=== PATIENT | female | born 1945 | race Caucasian/White ===

== ENCOUNTER 2017-02-08 16:55 | Emergency (ER) | payer OTHER ==
[2017-02-08 17:04] VITALS: BP 160/76; BMI 23.0
--- NOTE | 2017-02-08 17:24 | DR.GENAD ---
HPI - PCP Primary Care Physician: Peter - Complaint/Symptoms Chief Complaint:: "I was playing with the kids a few minutes ago and I fell on my shoulder and neck. 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 - Family History History of Family Medical Conditions: Yes Family Medical History: Diabetes Mellitus, Cancer, [place] - Social History Does patient currently use any type of tobacco product: No Have you used tobacco products in the last 12 months: No Type of Tobacco Use: None Does any household member use tobacco: No Alcohol Use: None Do you use any recreational Drugs:: No Lives With: Family Lives Where: Home - infectious screening In the last 2 months have you had wt loss of >10#?: NO Have you had fever, night sweats or hemotysis?: No Have you traveled outside the country in the last 6 months?: No Isolation: Standard ROS - Review of Systems Eyes: No Symptoms Reported ENTM: No Symptoms Reported Respiratoy: No Symptoms Reported Cardiovascular: No Symptoms Reported Gastrointestinal/Abdominal: No Symptoms Reported Genitourinary: No Symptoms Reported Neurological: No Symptoms Reported Musculoskeletal: Neck, Shoulder (right ) Integumentary: No Symptoms Reported Hematologic/Lymphatic: No Symptoms Reported Endocrine: No Symptoms Reported Psychiatric: No Symptoms Reported All Other Systems: Reviewed and Negative PE - Vital Signs Vitals: Temperature 98.2 F Pulse Rate 69 Respiratory Rate 18 Blood Pressure 160/76 O2 Sat by Pulse Oximetry 99 - General General Appearance: Alert, In No Apparent Distress - Head Head Exam: Normal Inspection, Atraumatic - Eyes Eye exam: Normal Appearance, PERRL, EOMI - ENT ENT Exam: Normal Exam External Ear Exam: Normal External Inspection TM/Canal Exam: Bilateral Normal Nose Exam: Normal Nose Exam Mouth Exam: Normal Inspection Throat Exam: Normal Inspection - Neck Neck Exam: Normal Inspection - Chest Chest Inspection: Normal Inspection - Respiratory Respiratory Exam: Normal Lung Sounds Bilat Respiratory Exam: Bilateral Clear to Auscultation - Cardiovascular Cardiovascular Exam: Regular Rate - Abdominal Exam Abdominal Exam: Normal Inspection Abdominal Tenderness: negative: RUQ, RLQ, LUQ, LLQ, Epigastrium, Suprapubic, Diffuse, Mild, Moderate, Severe, Other - Extremities Extremities Exam: Tenderness (right shoulder) - Back Back Exam: Normal Inspection - Neurologic Neurological Exam: Alert, Oriented X3, CN II-XII Intact - Psychiatric Psychiatric Exam: Normal Affect, Normal Mood - Skin Skin Exam: Warm, Dry, Intact ROR - XRAY XRAY Interpreted by: Radiologist (Right shoulder: No acute fracture or dislocation of the right shoulder. Mild DJD of the AC joint. Cervical Spine: No definite acute traumatic abnormality, Degenerative disc disease and bilateral uncovertebral joint degenerative joint disease C5-6;C6-7) - Diagnosis Discharge Problem: DJD of right AC (acromioclavicular) joint Contusion of right shoulder Qualifiers: Encounter type: initial encounter Qualified Code(s): S40.011A - Contusion of right shoulder, initial encounter DJD (degenerative joint disease) of cervical spine Qualifiers: Spinal osteoarthritis complication: with radiculopathy Qualified Code(s): M47.22 - Other spondylosis with radiculopathy, cervical region - Discharge Plan Condition: Stable - Follow ups/Referrals Follow ups/Referrals: CAROLE MEDEIROS [Primary Care Provider] - 3 days - Instructions
[2017-02-08] MEDS ORDERED: TORADOL 30 MG VIAL IM ONE (17:28)
--- NOTE | 2017-02-08 18:00 | RAD ---
HISTORY: Injury, fall, neck pain Study: Cervical spine AP, lateral, oblique Comparison: None Findings: The prevertebral soft tissues are normal. The alignment is normal. The vertebral bodies are of averag e height. Degenerative disc disease is present for a full at C5-6 and C6-7. The odontoid is intact. T he posterior elements appear intact. There is some uncovertebral joint degenerative joint disease vlad aterally C5-6 and C6-7. The facet joints are within normal limits. IMPRESSION: No definite acute traumatic abnormality Degenerative disc disease and bilateral uncovertebral joint degenerative joint disease C5-6, C6-7 Reported By:
[2017-02-08] MEDS ORDERED: TORADOL 30 MG VIAL ONE (18:02)
--- NOTE | 2017-02-08 18:06 | RAD ---
HISTORY: Right shoulder pain after injury. Study: Three-view right shoulder. Comparison: None. Findings: There are mild degenerative changes of the acromioclavicular joint. The AC joint and clavicle are oth erwise grossly unremarkable. The glenohumeral articulation is normal in its appearance. No acute cor tical disruption or dislocation can be identified. The visualized portions of the scapula are unrema rkable. In addition, the visualized portions of the chest appear normal. IMPRESSION: 1. No acute fracture or dislocation of the right shoulder. 2. Mild DJD of the AC joint. Reported By:
== END 2017-02-08 18:31 | disposition home or self-care (01) ==
LOC: ER 17:07
DX: S40.011A Contusion of right shoulder, initial encounter (principal); M19.019 Primary osteoarthritis, unspecified shoulder; M47.22 Other spondylosis with radiculopathy, cervical region; W19.XXXA Unspecified fall, initial encounter; Y92.9 Unspecified place or not applicable
CPT/HCPCS: 72040; 73030; 96372; 99282; J1885

== ENCOUNTER 2019-02-27 15:05 | Observation (INO) ==
[2019-02-27 15:15] VITALS: BMI 22.2
--- NOTE | 2019-02-27 15:28 | DR.DIARMA ---
HPI - Time seen Time seen: 15:19 - PCP Primary Care Physician: NLD - Complaint Chief Complaint Doctor Comments: Patient state she has been having diarrhea all week and has been going to the bathroom every 15 to 20 minutes with bluish green watery stools. States she ate a pineapple sandwick using canned pineapple four nights ago with running off and she thought it was getting better then she had another pineapple sandwick and drank the juice from the can and went to rastafarian and about 30 minutes later she had diarrhea and vomited x1 with her stoold being like water. States she drank a blue Power aide drink and her stool came out blue and later turned greenish blue. She has not been able to keep anything down and cook a big breakfast for a family member today that fixed her bathroom and she tried to eat grits, egg but it would not stay down. She denies merle or hematuria. She is a patient of Dr. Perry in [place]. She denies tobacco, alcohol, drug, or vapor use. States she has had a nonproductive cough but denies fever or chills. Chief Complaint:: PT. STATES SHE ATE A PINEAPPLE SANDWICH ON FRIDAY NIGHT AND DRANK THE JUICE AND AFTER THAT SHE BEGAN HAVING DIARRHEA. PT. IS UNABLE TO EAT OR DRINK ANYTHING WITHOUT HAVING DIARRHEA. PT. ALSO C/O ABDOMINAL PAIN. PT. HAS ONLY VOMITED ONE TIME. PT. C/O WEAKNESS/FATIGUE & A NON PRODUCTIVE COUGH. - Reviewed Nurses notes reviewed: Yes - Source History Provided: Patient - Mode of Arrival Mode of Arrival: Ambulatory - Timing Onset of Chief Complaint: 02/24/19 - Duration Duration: Constant How lon Duration: Days - Severity Number of Diarrhea Episodes in last 24 hours: diffuse abdominal pain - Quality Quality of Diarrhea: Watery - Context Onset: Spontaneous Recent: Possible spoiled food Diarrhea history of: None - Associated signs and symptoms Associated signs and symptoms: Abdominal pain, Nausea, Vomiting - If abdominal pain present Quality: Aching, Generalized Location of Abdominal Pain: Diffuse PMH - PMH Past Medical History: Yes Past Medical History: Dyslipidemia, Hypothyroidism Past Surgical History: Yes 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 - Family History History of Family Medical Conditions: Yes Family Medical History: Diabetes Mellitus, Cancer, [place] - Social History Does patient currently use any type of tobacco product: No Have you used tobacco products in the last 12 months: No Type of Tobacco Use: None Does any household member use tobacco: No Alcohol Use: None Do you use any recreational Drugs:: No Lives With: Alone Lives Where: Home - infectious screening In the last 2 months have you had wt loss of >10#?: NO Have you had fever, night sweats or hemotysis?: No Have you traveled outside the country in the last 6 months?: No Isolation: Standard ROS - Review of Systems Constitutional: No Symptoms Reported, Weakness, Loss of Appetite Eyes: No Symptoms Reported ENTM: No Symptoms Reported Respiratoy: No Symptoms Reported, Non-Productive Cough. negative: See HPI, Productive Cough, Moist Cough, Dry Cough, Hacking Cough, Barking Cough, Brassy Cough, Orthopnea, Short of Breath, Stridor, Wheezing, Hemoptysis, Other Cardiovascular: No Symptoms Reported. negative: See HPI, Chest Pain, Edema, Palpitations, Syncope, Cyanosis, Skin Mottling, Other Gastrointestinal/Abdominal: No Symptoms Reported, Diarrhea, Nausea, Vomiting Genitourinary: No Symptoms Reported Neurological: No Symptoms Reported, Weakness, Dizziness Musculoskeletal: No Symptoms Reported Integumentary: No Symptoms Reported Hematologic/Lymphatic: No Symptoms Reported Endocrine: No Symptoms Reported Psychiatric: No Symptoms Reported PE - General Limitations: No Limitations General Appearance: Alert, In Distress (moderate) - Head Head Exam: Normal Inspection, Atraumatic, Normocephalic - Eyes Eye exam: Normal Appearance, PERRL, EOMI. negative: Scleral Icterus, Conjunctival Injection, Nystagmus, Miosis, Mydrasis, Periorbital Swelling, Periorbital Tenderness, Other - ENT ENT Exam: Normal Exam, Normal Oropharynx, Normal External Ear Exam, Mucous Membranes Moist, TM's Normal Bilaterally - Neck Neck Exam: Normal Inspection, Full ROM, Trachea Midline. negative: Tenderness, Meningismus, Lymphadenopathy, Thyromegaly, Other - Chest Chest Inspection: Normal Inspection, Symmetric Chest Wall Rise. negative: Tenderness, Rash, Abscess, Other - Respiratory Respiratory Exam: Normal Lung Sounds Bilat, Accessory Muscle Use Respiratory Exam: Bilateral Clear to Auscultation, Bilateral Wheezing, Bilateral Dullness on Percussion, Left Rales - Cardiovascular Cardiovascular Exam: Regular Rate, Normal Rhythm, Normal Heart Sounds - Abdominal Exam Abdominal Exam: Normal Inspection, Tenderness, Hyperactive Bowel Sounds Abdominal Tenderness: Diffuse, Mild - Rectal Rectal: Deferred Stool Characteristics: Liquid, Green - Genitourinary Scrotum: Deferred Hernia: Deferred Prostate: negative: Normal, Deferred, Tender, Mass, Enlargement, Other - Extremeties Extremities Exam: Normal Inspection, Full ROM, Normal Capillary Refill. negative: Tenderness, Edema, Joint Swelling, Calf Tenderness, Other - Back Back Exam: Normal Inspection, Full ROM. negative: Tenderness, (R) CVA Tenderness, (L) CVA Tenderness, Muscle Spasm, Paraspinal Tenderness, Vertebral Tenderness, Rashes, (R) Sciatic Notch Tenderness, (L) Sciatic Notch Tendern, (R) Straight Leg Raise, (L) Straight Leg Raise, Other - Neurologic Neurological Exam: Alert, Oriented X3, CN II-XII Intact, Normal Gait, Reflexes Normal - Psychiatric Psychiatric Exam: Normal Affect, Normal Mood - Skin Skin Exam: Warm, Dry, Intact, Normal Color. negative: Rash, Cyanosis, Diaphoresis, Erythema, Pallor, Mottled, Other - Vital Signs Vitals: Temperature 98 F Pulse Rate 100 Respiratory Rate 17 Blood Pressure 137/68 O2 Sat by Pulse Oximetry 95 Course - Reevaluation 1st: Improved - Consultation Called: 17:57 Call Returned: 17:57 (Dr. Ascencio to admit) - Education/Counseling Education/Counseling: Patient, Family Educated On: Treatment, Diagnosis, Needs for Follow Up ROR - Labs Reviewed Laboratory Results Reviewed?: Yes (All labs and x-ray results reviewed and discussed with patient) Result Diagrams: 02/27/19 15:42 02/27/19 15:42 - XRAY XRAY Interpreted by: Radiologist (CT abdomen and pelvis: Diffuse nonspecific enteritisthroughout the small and large bowel. 1mm nonobstructing right renal calculus.) - Labs Reviewed Laboratory: 02/27/19 15:56 Stool - Final WBC 6.1 X10^3/uL (3.6-10.0) 02/27/19 15:42 RBC 4.59 X10^6/uL (3.5-5.4) 02/27/19 15:42 Hgb 13.9 g/dL (12.0-16.0) 02/27/19 15:42 Hct 40.7 % (36.0-47.0) 02/27/19 15:42 MCV 88.7 fL (80.0-100.0) 02/27/19 15:42 MCH 30.4 pg (27.0-34.0) 02/27/19 15:42 MCHC 34.2 g/dL (33.0-35.0) 02/27/19 15:42 RDW 13.0 % (11.6-16.5) 02/27/19 15:42 Plt Count 248 X10^3/uL (150.0-450.0) 02/27/19 15:42 MPV 8.2 fL (7.4-11.0) 02/27/19 15:42 Neut % (Auto) 62.1 % (42.0-75.0) 02/27/19 15:42 Lymph % (Auto) 25.4 % (21.0-51.0) 02/27/19 15:42 [place] % (Auto) 11.1 % (0.0-13.0) 02/27/19 15:42 Eos % (Auto) 0.7 % (0.9-2.9) L 02/27/19 15:42 Baso % (Auto) 0.7 % (0.2-1.0) 02/27/19 15:42 Neut # (Auto) 3.8 x10^3/uL (2.2-4.8) 02/27/19 15:42 Lymph # (Auto) 1.5 X10^3/uL (1.3-2.9) 02/27/19 15:42 [place] # (Auto) 0.7 x10^3/uL (0.3-0.8) 02/27/19 15:42 Eos # (Auto) 0.0 x10^3/uL (0.0-0.2) 02/27/19 15:42 Baso # (Auto) 0.0 X10^3/uL (0.0-0.1) 02/27/19 15:42 Absolute Nucleated RBC 0.0 /100WBC 02/27/19 15:42 Sodium 139 mmol/L (136-145) 02/27/19 15:42 Corrected Sodium 139 mmol/L (136-145) 02/27/19 15:42 Potassium 3.1 mmol/L (3.5-5.1) L 02/27/19 15:42 Chloride 105 mmol/L (98-107) 02/27/19 15:42 Carbon Dioxide 17.1 mmol/L (21-32) L 02/27/19 15:42 BUN 10 mg/dL (7-18) 02/27/19 15:42 Creatinine 0.72 mg/dL (0.55-1.02) 02/27/19 15:42 Est GFR (MDRD) Af Amer > 60 (>60) 02/27/19 15:42 Est GFR (MDRD) Non-Af > 60 (>60) 02/27/19 15:42 Glucose 112 mg/dL (65-99) H 02/27/19 15:42 Calcium 8.9 mg/dL (8.5-10.1) 02/27/19 15:42 Corrected Calcium TNP 02/27/19 15:42 Total Bilirubin 0.30 mg/dL (0.2-1.0) 02/27/19 15:42 AST 20 Units/L (15-37) 02/27/19 15:42 ALT 19 Units/L (12-78) 02/27/19 15:42 Alkaline Phosphatase 68 Units/L (46-116) 02/27/19 15:42 Total Protein 7.5 g/dL (6.4-8.2) 02/27/19 15:42 Albumin 3.6 g/dL (3.4-5.0) 02/27/19 15:42 Globulin 3.9 g/dL (2.5-4.5) 02/27/19 15:42 Albumin/Globulin Ratio 0.9 Ratio (1.1-2.1) L 02/27/19 15:42 Amylase 23 Units/L (25-115) L 02/27/19 15:42 Lipase 85 Units/L (73-393) 02/27/19 15:42 Stool Description 62g,liquid,green 02/27/19 15:59 Stl Occult Blood (IFOB) Negative (NEGATIVE) 02/27/19 15:59 Stool for White Cells Positive (NEGATIVE) A 02/27/19 15:59 Stool H. pylori Ag Negative (NEGATIVE) 02/27/19 15:59 Opioid - Opioid Risk Tool Total: 0 Total Score Risk Category: Low Risk - Diagnosis Discharge Problem: Acute infective gastroenteritis, Metabolic acidosis, Hypokalemia, Hyperglycemia, Right renal stone, Weight loss, unintentional - Discharge Plan Disposition: ADMITTED INPATIENT Condition: Stable - Follow ups/Referrals Follow ups/Referrals: NFD,None [STAFF PHYSICIAN] - 3 days - Instructions
[2019-02-27] MEDS ORDERED: NS 1000 ML 1,000 ML IV ONE (15:29)
[2019-02-27] MEDS ORDERED: NS 1000 ML 1,000 ML ONE (15:36)
[2019-02-27 15:49] LABS: BASOPHILS % (AUTO) 0.7 % (0.2-1.0); EOSINOPHILS % (AUTO) 0.7 % (0.9-2.9); HEMATOCRIT 40.7 % (36.0-47.0); HEMOGLOBIN 13.9 g/dL (12.0-16.0); LYMPHOCYTES # (AUTO) 1.5 X10^3/uL (1.3-2.9); LYMPHOCYTES % (AUTO) 25.4 % (21.0-51.0); MEAN CORPUSCULAR HEMOGLOBIN 30.4 pg (27.0-34.0); MEAN CORPUSCULAR HGB CONC 34.2 g/dL (33.0-35.0); MEAN CORPUSCULAR VOLUME 88.7 fL (80.0-100.0); MEAN PLATELET VOLUME 8.2 fL (7.4-11.0); MONOCYTES # (AUTO) 0.7 x10^3/uL (0.3-0.8); MONOCYTES % (AUTO) 11.1 % (0.0-13.0); NEUTROPHILS # (AUTO) 3.8 x10^3/uL (2.2-4.8); NEUTROPHILS % (AUTO) 62.1 % (42.0-75.0); PLATELET COUNT 248 X10^3/uL (150.0-450.0); RED BLOOD COUNT 4.59 X10^6/uL (3.5-5.4); WHITE BLOOD COUNT 6.1 X10^3/uL (3.6-10.0)
[2019-02-27 16:01] LABS: ALANINE AMINOTRANSFERASE 19 Units/L (12-78); ALBUMIN 3.6 g/dL (3.4-5.0); ALKALINE PHOSPHATASE 68 Units/L (46-116); AMYLASE 23 Units/L (25-115); ASPARTATE AMINO TRANSFERASE 20 Units/L (15-37); BLOOD UREA NITROGEN 10 mg/dL (7-18); CALCIUM 8.9 mg/dL (8.5-10.1); CARBON DIOXIDE 17.1 mmol/L (21-32); CHLORIDE 105 mmol/L (98-107); COR NA(FOR HYPERGLY) 139 mmol/L (136-145); CREATININE 0.72 mg/dL (0.55-1.02); LIPASE 85 Units/L (73-393); SODIUM 139 mmol/L (136-145); TOTAL PROTEIN 7.5 g/dL (6.4-8.2); eGFR NON BLACK RACES > 60 (>60)
--- NOTE | 2019-02-27 16:28 | CT ---
HISTORY: Abdominal pain, persistent diarrhea Study: CT abdomen and pelvis without contrast Comparison: None Technique: Multiple axial images of the abdomen and pelvis were obtained without IV contrast. Dose reduction techniques including Automated Exposure Control (AEC) and adjustment of mA and kV were utilized. Findings: Please note evaluation is limited without use of IV contrast. The visualized lung bases are clear. The liver, spleen, pancreas, and adrenal glands are unremarkable in their unenhanced CT appearance. The gallbladder is normal. There is a single 1 mm nonobstructing right renal calculus. The bilateral ureters are normal. No free intraperitoneal air. No evidence of bowel obstruction. The visualized portions of the appendix are normal. No ascites. There are scattered fluid-filled loops of small and large bowel with air-fluid levels suggesting diffuse nonspecific enteritis. The soft tissues and osseous structures are unremarkable. Limited evaluation of vascular structures due to lack of contrast. No pathologically enlarged lymph nodes are identified. Urinary bladder is not well distended but otherwise unremarkable. IMPRESSION: 1. Diffuse nonspecific enteritis pattern throughout the small and large bowel. 2. 1 mm nonobstructing right renal calculus. Reported By:
[2019-02-27] MEDS ORDERED: ZOFRAN INJ 4 MG VIAL IVP ONE (16:33)
[2019-02-27] MEDS ORDERED: LOMOTIL PO ONE (16:34)
[2019-02-27] MEDS ORDERED: ROCEPHIN VIAL 1 GRAM 1 G in NS 100 ML IV + SPIKE MINIBAG* 100 ML IV ONE (16:34)
[2019-02-27] MEDS ORDERED: ZOFRAN INJ 4 MG VIAL ONE (16:53)
[2019-02-27] MEDS ORDERED: LOMOTIL ONE (16:58)
[2019-02-27] MEDS: K-LYTE EFFERVESCENT PO SCH (17:05)
[2019-02-27] MEDS ORDERED: ROCEPHIN VIAL 1 GRAM ONE (17:06)
[2019-02-27] MEDS ORDERED: IMODIUM CAP 2 MG PO PRN (18:01)
[2019-02-27] MEDS ORDERED: ZOFRAN INJ 4 MG VIAL IVP PRN (18:04)
[2019-02-27 19:14] LABS: BILIRUBIN,URINE NEGATIVE (NEGATIVE); BLOOD/HEMOGLOBIN,URINE 2+ (NEGATIVE); GLUCOSE, URINE NEGATIVE (NEGATIVE); KETONES,URINE 2+ (NEGATIVE); LEUKOCYTE ESTERASE ,URINE NEGATIVE (NEGATIVE); NITRITES,URINE NEGATIVE (NEGATIVE); PROTEIN,URINE 2+ (NEGATIVE); UROBILINOGEN,URINE NORMAL (NORMAL)
[2019-02-27 19:22] LABS: APPEARANCE,URINE SLIGHTLY HAZY (CLEAR); COLOR,URINE YELLOW (YELLOW)
[2019-02-27 19:23] LABS: BACTERIA,URINE NEGATIVE /HPF (NEGATIVE); MUCUS,URINE MODERATE /HPF (NEGATIVE); RBC,URINE 0-2 /HPF (0-3); SQUAMOUS EPITHELIAL CELL,UR RARE /HPF (NEGATIVE)
[2019-02-27] MEDS: NS 1/2 + KCL 20 MEQ/L 1,000 ML IV SCH (19:45)
[2019-02-27] MEDS ORDERED: POTASSIUM CHL 60 MEQ/NS 0.45% 500 ML IV PRN (21:32)
[2019-02-27] MEDS ORDERED: K-RIDER 10 MEQ/NS 100 ML 10 MEQ/100 ML BAG IV PRN (21:32)
[2019-02-27] MEDS ORDERED: POTASSIUM CHLORIDE LIQ 20 MEQ UDC PO PRN (21:32)
[2019-02-27] MEDS ORDERED: KLOR-CON PO PRN (21:32)
[2019-02-27] MEDS ORDERED: MICRO K EXTEN CAP 10 MEQ PO PRN (21:32)
[2019-02-27] MEDS ORDERED: K-DUR TAB 20 MEQ PO PRN (21:32)
[2019-02-27] MEDS ORDERED: POTASSIUM CHL 40 MEQ/NS 0.45% 500 ML IV PRN (21:32)
[2019-02-27] MEDS: MAGNESIUM SULFATE 1 GRAM/100 mL PREMIX 1 GM/100 ML BAG IV PRN (23:55)
[2019-02-28] MEDS: NS 1/2 + KCL 20 MEQ/L 1,000 ML IV SCH ×5 (03:00→19:53)
[2019-02-28 06:36] LABS: BASOPHILS # (AUTO) 0.1 X10^3/uL (0.0-0.1); EOSINOPHILS # (AUTO) 0.2 x10^3/uL (0.0-0.2); EOSINOPHILS % (AUTO) 3.5 % (0.9-2.9); HEMATOCRIT 37.6 % (36.0-47.0); HEMOGLOBIN 12.6 g/dL (12.0-16.0); LYMPHOCYTES # (AUTO) 2.2 X10^3/uL (1.3-2.9); LYMPHOCYTES % (AUTO) 39.4 % (21.0-51.0); MEAN CORPUSCULAR HEMOGLOBIN 30.1 pg (27.0-34.0); MEAN CORPUSCULAR HGB CONC 33.6 g/dL (33.0-35.0); MEAN CORPUSCULAR VOLUME 89.6 fL (80.0-100.0); MEAN PLATELET VOLUME 9.4 fL (7.4-11.0); MONOCYTES # (AUTO) 0.6 x10^3/uL (0.3-0.8); MONOCYTES % (AUTO) 11.2 % (0.0-13.0); NEUTROPHILS # (AUTO) 2.6 x10^3/uL (2.2-4.8); NEUTROPHILS % (AUTO) 44.9 % (42.0-75.0); PLATELET COUNT 200 X10^3/uL (150.0-450.0); RED CELL DISTRIBUTION WIDTH 13.1 % (11.6-16.5)
[2019-02-28 06:49] LABS: WHITE BLOOD COUNT 6.5 X10^3/uL (3.6-10.0)
[2019-02-28 06:50] LABS: PLATELET MORPHOLOGY COMMENT NORMAL (NORMAL)
[2019-02-28 06:55] LABS: ALANINE AMINOTRANSFERASE 15 Units/L (12-78); ALKALINE PHOSPHATASE 57 Units/L (46-116); ASPARTATE AMINO TRANSFERASE 21 Units/L (15-37); BLOOD UREA NITROGEN 6 mg/dL (7-18); CALCIUM 8.1 mg/dL (8.5-10.1); CARBON DIOXIDE 18.4 mmol/L (21-32); CHLORIDE 109 mmol/L (98-107); COR CA(FOR HYPOALB) 8.9 mg/dL (8.5-10.1); CREATININE 0.57 mg/dL (0.55-1.02); MAGNESIUM 2.3 mg/dL (1.7-2.9); SODIUM 139 mmol/L (136-145); TOTAL PROTEIN 6.2 g/dL (6.4-8.2); eGFR NON BLACK RACES > 60 (>60)
[2019-02-28] MEDS ORDERED: PROTONIX INJ 40 MG VIAL IVP SCH (09:00)
[2019-02-28] MEDS: CIPRO IV 400 MG PREMIX* 400 MG/200 ML IV.SOLN. IV SCH ×2 (10:15→20:12)
[2019-02-28] MEDS: K-LYTE EFFERVESCENT PO SCH (10:16)
[2019-02-28] MEDS: FLAGYL IV PREMIX 500 MG BAG 500 MG/100 ML BAG IV SCH ×3 (10:16→22:00)
[2019-02-28] MEDS: VSL#3 PO SCH (10:16)
[2019-02-28] MEDS: SYNTHROID 150 mcg TAB PO SCH (10:16)
[2019-02-28] MEDS: PLAVIX PO SCH (10:17)
--- NOTE | 2019-02-28 10:28 | DR.H&P ---
H&P History & Physical for Day of: H&P Date: 02/28/19 Chief Complaint Chief Complaint: diarrhea and weakness Allergies Allergies Allergy/AdvReac Type Severity Reaction Status Date / Time atorvastatin Allergy Verified 02/27/19 15:14 codeine Allergy Verified 02/27/19 15:14 ezetimibe [From Zetia] Allergy Verified 02/27/19 15:14 gabapentin [From Neurontin] Allergy Verified 02/27/19 15:14 meperidine [From Demerol] Allergy Verified 02/27/19 15:14 promethazine [From Phenergan] Allergy Verified 02/27/19 15:14 History of Present Illness History of Present Illness: Ms. Cuba is a 74y/o female with a PMH of hypothyroidism and HLD presented with generalized weakness and diarrhea that has been going on for almost a week now. She states she had some chicken and boston butt at a voodoo event on the weekend but did not have any diarrhea until a . She also had pineapple from a can which had a darker yellow color than usual. She has been having multiple episodes of diarrhea since she ate and drank the pineapple juice. She denies N/V, does have some abdominal discomfort. Denies fever or chills, denies sick contact or anyone else with similar symptoms. She has not been able to stay hydrated or eat because of having diarrhea right after she eats. She reports feeling a lot better this AM, diarrhea has also slowed down since admission. ER work-up - low K and mag - CTAP: diffuse non-specific enteritis, non-obstructive right renal calculus 1mm - Meds: IVF, Rocephin Past Medical History Past Medical History: Dyslipidemia and Hypothyroidism Past Surgical History Surgical History: Family History Family Medical History: Diabetes Mellitus and Heart Failure Social History Does patient currently use any type of tobacco product: No Have you used tobacco products in the last 12 months: No Type of Tobacco Use: None Does any household member use tobacco: No Alcohol Use: None Drug Use: Prescription Drugs Prescription drug monitoring program results: PDMP was not reviewed Medications Home Medications: atorvastatin Allergy (Verified 02/27/19 15:14) codeine Allergy (Verified 02/27/19 15:14) ezetimibe [From Zetia] Allergy (Verified 02/27/19 15:14) gabapentin [From Neurontin] Allergy (Verified 02/27/19 15:14) meperidine [From Demerol] Allergy (Verified 02/27/19 15:14) promethazine [From Phenergan] Allergy (Verified 02/27/19 15:14) CONTINUE taking the following medications alendronate [Fosamax] 70 mg PO DAILY 02/27/19 [History] biotin-keratin [Biotin Plus Keratin] 1 tab PO DAILY 02/27/19 [History] cholecalciferol (vitamin D3) [Vitamin D3] 2,000 unit PO DAILY 02/27/19 [History] niacin 1,000 mg PO DAILY 02/27/19 [History] pravastatin 20 mg PO DAILY 02/27/19 [History] Labs Result Diagrams: 02/28/19 05:34 02/28/19 05:34 Labs: 02/27/19 15:56 Stool Stool Culture - Preliminary 02/27/19 15:56 Stool - Final Laboratory WBC 6.5 X10^3/uL (3.6-10.0) 02/28/19 05:34 RBC 4.20 X10^6/uL (3.5-5.4) 02/28/19 05:34 Hgb 12.6 g/dL (12.0-16.0) 02/28/19 05:34 Hct 37.6 % (36.0-47.0) 02/28/19 05:34 MCV 89.6 fL (80.0-100.0) 02/28/19 05:34 MCH 30.1 pg (27.0-34.0) 02/28/19 05:34 MCHC 33.6 g/dL (33.0-35.0) 02/28/19 05:34 RDW 13.1 % (11.6-16.5) 02/28/19 05:34 Plt Count 200 X10^3/uL (150.0-450.0) 02/28/19 05:34 Plt Count Comment Adequate (ADEQUATE) 02/28/19 05:34 MPV 9.4 fL (7.4-11.0) 02/28/19 05:34 Neut % (Auto) 44.9 % (42.0-75.0) 02/28/19 05:34 Lymph % (Auto) 39.4 % (21.0-51.0) 02/28/19 05:34 [place] % (Auto) 11.2 % (0.0-13.0) 02/28/19 05:34 Eos % (Auto) 3.5 % (0.9-2.9) H 02/28/19 05:34 Baso % (Auto) 1.0 % (0.2-1.0) 02/28/19 05:34 Neut # (Auto) 2.6 x10^3/uL (2.2-4.8) 02/28/19 05:34 Lymph # (Auto) 2.2 X10^3/uL (1.3-2.9) 02/28/19 05:34 [place] # (Auto) 0.6 x10^3/uL (0.3-0.8) 02/28/19 05:34 Eos # (Auto) 0.2 x10^3/uL (0.0-0.2) 02/28/19 05:34 Baso # (Auto) 0.1 X10^3/uL (0.0-0.1) 02/28/19 05:34 Absolute Nucleated RBC 0.4 /100WBC 02/28/19 05:34 Plt Morphology Comment Normal (NORMAL) 02/28/19 05:34 RBC Morphology Normal (NORMAL) 02/28/19 05:34 Sodium 139 mmol/L (136-145) 02/28/19 05:34 Corrected Sodium TNP 02/28/19 05:34 Potassium 3.5 mmol/L (3.5-5.1) 02/28/19 05:34 Chloride 109 mmol/L (98-107) H 02/28/19 05:34 Carbon Dioxide 18.4 mmol/L (21-32) L 02/28/19 05:34 BUN 6 mg/dL (7-18) L 02/28/19 05:34 Creatinine 0.57 mg/dL (0.55-1.02) 02/28/19 05:34 Est GFR (MDRD) Af Amer > 60 (>60) 02/28/19 05:34 Est GFR (MDRD) Non-Af > 60 (>60) 02/28/19 05:34 Glucose 80 mg/dL (65-99) 02/28/19 05:34 Calcium 8.1 mg/dL (8.5-10.1) L 02/28/19 05:34 Corrected Calcium 8.9 mg/dL (8.5-10.1) 02/28/19 05:34 Magnesium 2.3 mg/dL (1.7-2.9) 02/28/19 05:34 Total Bilirubin 0.30 mg/dL (0.2-1.0) 02/28/19 05:34 AST 21 Units/L (15-37) 02/28/19 05:34 ALT 15 Units/L (12-78) 02/28/19 05:34 Alkaline Phosphatase 57 Units/L (46-116) 02/28/19 05:34 Total Protein 6.2 g/dL (6.4-8.2) L 02/28/19 05:34 Albumin 3.0 g/dL (3.4-5.0) L 02/28/19 05:34 Globulin 3.2 g/dL (2.5-4.5) 02/28/19 05:34 Albumin/Globulin Ratio 0.9 Ratio (1.1-2.1) L 02/28/19 05:34 Amylase 23 Units/L (25-115) L 02/27/19 15:42 Lipase 85 Units/L (73-393) 02/27/19 15:42 Specimen Type Clean catch urine 02/27/19 19:03 Urine Color Yellow (YELLOW) 02/27/19 19:03 Urine Appearance Slightly hazy (CLEAR) 02/27/19 19:03 Urine pH 6.0 (5.0 - 8.0) 02/27/19 19:03 Ur Specific [place] 1.020 (1.000-1.030) 02/27/19 19:03 Urine Protein 2+ (NEGATIVE) 02/27/19 19:03 Urine Glucose (UA) Negative (NEGATIVE) 02/27/19 19:03 Urine Ketones 2+ (NEGATIVE) 02/27/19 19:03 Urine Occult Blood 2+ (NEGATIVE) 02/27/19 19:03 Urine Nitrite Negative (NEGATIVE) 02/27/19 19:03 Urine Bilirubin Negative (NEGATIVE) 02/27/19 19:03 Urine Urobilinogen Normal (NORMAL) 02/27/19 19:03 Ur Leukocyte Esterase Negative (NEGATIVE) 02/27/19 19:03 Urine RBC 0-2 /HPF (0-3) 02/27/19 19:03 Urine WBC 0-2 /HPF (0-5) 02/27/19 19:03 Ur Squamous Epith Cells Rare /HPF (NEGATIVE) 02/27/19 19:03 Urine Bacteria Negative /HPF (NEGATIVE) 02/27/19 19:03 Urine Mucus Moderate /HPF (NEGATIVE) 02/27/19 19:03 Ur Culture Indicated? No/not indicated 02/27/19 19:03 Stool Description 62g,liquid,green 02/27/19 15:59 Stl Occult Blood (IFOB) Negative (NEGATIVE) 02/27/19 15:59 Stool for White Cells Positive (NEGATIVE) A 02/27/19 15:59 Stl C. diff Tox B Gene Negative (NEGATIVE) 02/27/19 15:59 Stl C. diff [id number] Negative (NEGATIVE) 02/27/19 15:59 Stool H. pylori Ag Negative (NEGATIVE) 02/27/19 15:59 Review of Systems Constitutional: Weakness and Malaise; denies Fever, Chills and Sweats Eyes: No Symptoms Reported ENT: No Symptoms Reported Respiratory: denies Cough and Shortness of Breath Cardiovascular: denies Chest Pain, Palpitations and Edema Gastrointestinal: Abdominal Pain and Diarrhea; denies Nausea, Vomiting and Constipation Genitourinary: No Symptoms Reported Musculoskeletal: Foot Pain Skin: No Symptoms Reported Neurological: No Symptoms Reported Physical Exam Vital Signs: Temperature 98.1 F Pulse Rate [Left Brachial] 65 Pulse Rate [Standing] 90 Pulse Rate [Sitting] 99 Pulse Rate [Lying] 84 Pulse Rate 100 Respiratory Rate 15 Blood Pressure [Left Arm] 116/53 Blood Pressure [Standing] 107/53 Blood Pressure [Sitting] 116/51 Blood Pressure [Lying] 116/51 Blood Pressure 137/68 O2 Sat by Pulse Oximetry 97 Oriented: Normal Eyes: Normal Nose: Normal Throat: Normal Respiratory: Clear Throughout Cardiovascular: Normal Auscultation: Bowel Sounds: Increased Palpation: Normal Tenderness: Normal Skin: Normal Musculoskeletal: Normal Psychiatric: Normal Mood Description: Calm Affect: Normal Speech Pattern: Clear and Appropriate Assessment/Plan (1) Acute infective gastroenteritis: Status: Acute Plan: stool culture positive for Campy, CTAP showed diffuse enteritis. Received one dose of Rocephin in ED. Will start Cipro and Flagyl Continue hydration, advance diet as tolerated. C.diff negative (2) Metabolic acidosis: Status: Acute Plan: Improving with hydration, likely 2/2 to diarrhea and infection (3) Hypokalemia: Status: Acute Plan: K: 3.5, improved with replacement (4) Right renal stone: Status: Acute Plan: non-obstructive 1 mm right renal stone (5) Campylobacter enteritis: Status: Acute Plan: continue IV Abx, monitor symptoms (6) Hypomagnesemia: Status: Acute Plan: Mh: 2.3, improved with replacement, monitor labs (7) HLD (hyperlipidemia): Status: Acute Plan: resume statin (8) Hypothyroid: Status: Acute Plan: resume levothyroxine Review Patient was examined?: Yes
[2019-02-28] MEDS: PRAVACHOL PO SCH (11:54)
[2019-02-28] MEDS: ALENDRONATE 70 MG PO SCH (11:55)
[2019-02-28] MEDS: NIACIN 1000 MG PO SCH (11:56)
[2019-02-28] MEDS: CALCIUM VITAMIN D3 VITAMIN K PO SCH (11:56)
[2019-03-01] MEDS: NS 1/2 + KCL 20 MEQ/L 1,000 ML IV SCH ×3 (03:00→12:19)
[2019-03-01] MEDS: FLAGYL IV PREMIX 500 MG BAG 500 MG/100 ML BAG IV SCH ×2 (04:00→11:09)
[2019-03-01 06:28] LABS: BASOPHILS % (AUTO) 0.7 % (0.2-1.0); EOSINOPHILS # (AUTO) 0.1 x10^3/uL (0.0-0.2); HEMATOCRIT 36.8 % (36.0-47.0); HEMOGLOBIN 12.6 g/dL (12.0-16.0); LYMPHOCYTES # (AUTO) 1.4 X10^3/uL (1.3-2.9); LYMPHOCYTES % (AUTO) 39.1 % (21.0-51.0); MEAN CORPUSCULAR HEMOGLOBIN 30.4 pg (27.0-34.0); MEAN CORPUSCULAR HGB CONC 34.4 g/dL (33.0-35.0); MEAN CORPUSCULAR VOLUME 88.5 fL (80.0-100.0); MEAN PLATELET VOLUME 8.2 fL (7.4-11.0); MONOCYTES # (AUTO) 0.4 x10^3/uL (0.3-0.8); MONOCYTES % (AUTO) 10.2 % (0.0-13.0); NEUTROPHILS # (AUTO) 1.7 x10^3/uL (2.2-4.8); PLATELET COUNT 206 X10^3/uL (150.0-450.0); RED BLOOD COUNT 4.15 X10^6/uL (3.5-5.4); WHITE BLOOD COUNT 3.6 X10^3/uL (3.6-10.0)
[2019-03-01 06:36] LABS: BLOOD UREA NITROGEN 1 mg/dL (7-18); CALCIUM 7.7 mg/dL (8.5-10.1); CARBON DIOXIDE 23.1 mmol/L (21-32); CHLORIDE 109 mmol/L (98-107); CREATININE 0.57 mg/dL (0.55-1.02); MAGNESIUM 1.6 mg/dL (1.7-2.9); SODIUM 143 mmol/L (136-145); eGFR NON BLACK RACES > 60 (>60)
[2019-03-01] MEDS: MAGNESIUM SULFATE 1 GRAM/100 mL PREMIX 1 GM/100 ML BAG IV PRN ×2 (07:01→09:29)
[2019-03-01] MEDS: CIPRO IV 400 MG PREMIX* 400 MG/200 ML IV.SOLN. IV SCH (09:28)
[2019-03-01] MEDS: VSL#3 PO SCH (09:29)
[2019-03-01] MEDS: PLAVIX PO SCH (09:29)
[2019-03-01] MEDS: SYNTHROID 150 mcg TAB PO SCH (09:29)
--- NOTE | 2019-03-01 09:52 | W.DIS.FURT ---
Summary of Discharge Discharge Summary of Date Date of Exam: 03/01/19 Admission Date Date of Admission: 02/20/19 Admission Diagnosis Patient Problems (Updated 03/01/19 @ 09:48 by Sofia Torres) Hypothyroid (Chronic) E03.9 HLD (hyperlipidemia) (Chronic) E78.5 Hypomagnesemia (Acute) E83.42 Campylobacter enteritis (Acute) A04.5 Acute infective gastroenteritis (Acute) A09 Metabolic acidosis (Acute) E87.2 Hypokalemia (Acute) E87.6 Hyperglycemia (Acute) R73.9 Right renal stone (Acute) N20.0 Weight loss, unintentional (Acute) R63.4 Hospital Course: Ms. Cuba is a 74y/o female who presented with watery diarrhea x 1 week after she ate some canned pineapple and drank the juice. She has had watery diarrhea and generalized weakness which made her come to the ED. She denied N/V or abdominal pain. She had some abdominal discomfort. No sick contact or any exposure to anyone with similar symptoms. C.diff was negative. CTAP showed diffuse enteritis and a 1mm non-obstructive right renal stone. Stool culture positive for Campylobacter. She recieved IVF and was started on Ciprofloxacin and Flagyl. She was noted to have low potassium and magnesium which were replaced as needed. Her diet was advanced as tolerated. She reports decrease in BMs and less watery today. She is stable for discharge. She will be sent home with oral Flagyl and Ciprofloxacin for 5 more days. She will follow up with PCP in one week. Advised her to eat as tolerated and gradually advance her diet. Vital Signs: Vital Signs (72 hours) 02/27/19 15:11 02/27/19 18:09 02/27/19 19:00 Temperature 98 F 98.6 F Pulse Rate 100 H Pulse Rate [Left Brachial] 84 Pulse Rate [Lying] 84 Pulse Rate [Sitting] 99 H Pulse Rate [Standing] 90 Respiratory Rate 17 18 Blood Pressure 137/68 Blood Pressure [Left Arm] 122/58 Blood Pressure [Lying] 116/51 Blood Pressure [Sitting] 116/51 Blood Pressure [Standing] 107/53 O2 Sat by Pulse Oximetry 95 97 02/27/19 19:28 02/27/19 20:00 02/28/19 00:00 Temperature 98.6 F 98.6 F 97.6 F Pulse Rate Pulse Rate [Left Brachial] 94 H 84 73 Pulse Rate [Lying] Pulse Rate [Sitting] Pulse Rate [Standing] Respiratory Rate 18 20 16 Blood Pressure Blood Pressure [Left Arm] 107/53 122/58 114/52 Blood Pressure [Lying] Blood Pressure [Sitting] Blood Pressure [Standing] O2 Sat by Pulse Oximetry 97 02/28/19 04:00 02/28/19 08:00 02/28/19 12:00 Temperature 98.1 F 97.7 F 97.9 F Pulse Rate Pulse Rate [Left Brachial] 65 72 76 Pulse Rate [Lying] Pulse Rate [Sitting] Pulse Rate [Standing] Respiratory Rate 15 18 16 Blood Pressure Blood Pressure [Left Arm] 116/53 130/58 113/57 Blood Pressure [Lying] Blood Pressure [Sitting] Blood Pressure [Standing] O2 Sat by Pulse Oximetry 02/28/19 16:00 02/28/19 20:00 03/01/19 00:00 Temperature 98.1 F 97.6 F 98.6 F Pulse Rate Pulse Rate [Left Brachial] 80 76 72 Pulse Rate [Lying] Pulse Rate [Sitting] Pulse Rate [Standing] Respiratory Rate 20 18 16 Blood Pressure Blood Pressure [Left Arm] 108/52 119/60 120/70 Blood Pressure [Lying] Blood Pressure [Sitting] Blood Pressure [Standing] O2 Sat by Pulse Oximetry 03/01/19 04:00 Temperature 97.6 F Pulse Rate Pulse Rate [Left Brachial] 63 Pulse Rate [Lying] Pulse Rate [Sitting] Pulse Rate [Standing] Respiratory Rate 16 Blood Pressure Blood Pressure [Left Arm] 119/57 Blood Pressure [Lying] Blood Pressure [Sitting] Blood Pressure [Standing] O2 Sat by Pulse Oximetry Labs: Laboratory Last Values WBC 3.6 X10^3/uL (3.6-10.0) 03/01/19 05:24 RBC 4.15 X10^6/uL (3.5-5.4) 03/01/19 05:24 Hgb 12.6 g/dL (12.0-16.0) 03/01/19 05:24 Hct 36.8 % (36.0-47.0) 03/01/19 05:24 MCV 88.5 fL (80.0-100.0) 03/01/19 05:24 MCH 30.4 pg (27.0-34.0) 03/01/19 05:24 MCHC 34.4 g/dL (33.0-35.0) 03/01/19 05:24 RDW 13.0 % (11.6-16.5) 03/01/19 05:24 Plt Count 206 X10^3/uL (150.0-450.0) 03/01/19 05:24 Plt Count Comment Adequate (ADEQUATE) 02/28/19 05:34 MPV 8.2 fL (7.4-11.0) 03/01/19 05:24 Neut % (Auto) 47.0 % (42.0-75.0) 03/01/19 05:24 Lymph % (Auto) 39.1 % (21.0-51.0) 03/01/19 05:24 [place] % (Auto) 10.2 % (0.0-13.0) 03/01/19 05:24 Eos % (Auto) 3.0 % (0.9-2.9) H 03/01/19 05:24 Baso % (Auto) 0.7 % (0.2-1.0) 03/01/19 05:24 Neut # (Auto) 1.7 x10^3/uL (2.2-4.8) L 03/01/19 05:24 Lymph # (Auto) 1.4 X10^3/uL (1.3-2.9) 03/01/19 05:24 [place] # (Auto) 0.4 x10^3/uL (0.3-0.8) 03/01/19 05:24 Eos # (Auto) 0.1 x10^3/uL (0.0-0.2) 03/01/19 05:24 Baso # (Auto) 0.0 X10^3/uL (0.0-0.1) 03/01/19 05:24 Absolute Nucleated RBC 0.1 /100WBC 03/01/19 05:24 Plt Morphology Comment Normal (NORMAL) 02/28/19 05:34 RBC Morphology Normal (NORMAL) 02/28/19 05:34 Sodium 143 mmol/L (136-145) 03/01/19 05:24 Corrected Sodium TNP 03/01/19 05:24 Potassium 3.5 mmol/L (3.5-5.1) 03/01/19 05:24 Chloride 109 mmol/L (98-107) H 03/01/19 05:24 Carbon Dioxide 23.1 mmol/L (21-32) 03/01/19 05:24 BUN 1 mg/dL (7-18) L 03/01/19 05:24 Creatinine 0.57 mg/dL (0.55-1.02) 03/01/19 05:24 Est GFR (MDRD) Af Amer > 60 (>60) 03/01/19 05:24 Est GFR (MDRD) Non-Af > 60 (>60) 03/01/19 05:24 Glucose 94 mg/dL (65-99) 03/01/19 05:24 Calcium 7.7 mg/dL (8.5-10.1) L 03/01/19 05:24 Corrected Calcium 8.9 mg/dL (8.5-10.1) 02/28/19 05:34 Magnesium 1.6 mg/dL (1.7-2.9) L 03/01/19 05:24 Total Bilirubin 0.30 mg/dL (0.2-1.0) 02/28/19 05:34 AST 21 Units/L (15-37) 02/28/19 05:34 ALT 15 Units/L (12-78) 02/28/19 05:34 Alkaline Phosphatase 57 Units/L (46-116) 02/28/19 05:34 Total Protein 6.2 g/dL (6.4-8.2) L 02/28/19 05:34 Albumin 3.0 g/dL (3.4-5.0) L 02/28/19 05:34 Globulin 3.2 g/dL (2.5-4.5) 02/28/19 05:34 Albumin/Globulin Ratio 0.9 Ratio (1.1-2.1) L 02/28/19 05:34 Amylase 23 Units/L (25-115) L 02/27/19 15:42 Lipase 85 Units/L (73-393) 02/27/19 15:42 Specimen Type Clean catch urine 02/27/19 19:03 Urine Color Yellow (YELLOW) 02/27/19 19:03 Urine Appearance Slightly hazy (CLEAR) 02/27/19 19:03 Urine pH 6.0 (5.0 - 8.0) 02/27/19 19:03 Ur Specific [place] 1.020 (1.000-1.030) 02/27/19 19:03 Urine Protein 2+ (NEGATIVE) 02/27/19 19:03 Urine Glucose (UA) Negative (NEGATIVE) 02/27/19 19:03 Urine Ketones 2+ (NEGATIVE) 02/27/19 19:03 Urine Occult Blood 2+ (NEGATIVE) 02/27/19 19:03 Urine Nitrite Negative (NEGATIVE) 02/27/19 19:03 Urine Bilirubin Negative (NEGATIVE) 02/27/19 19:03 Urine Urobilinogen Normal (NORMAL) 02/27/19 19:03 Ur Leukocyte Esterase Negative (NEGATIVE) 02/27/19 19:03 Urine RBC 0-2 /HPF (0-3) 02/27/19 19:03 Urine WBC 0-2 /HPF (0-5) 02/27/19 19:03 Ur Squamous Epith Cells Rare /HPF (NEGATIVE) 02/27/19 19:03 Urine Bacteria Negative /HPF (NEGATIVE) 02/27/19 19:03 Urine Mucus Moderate /HPF (NEGATIVE) 02/27/19 19:03 Ur Culture Indicated? No/not indicated 02/27/19 19:03 Stool Description 62g,liquid,green 02/27/19 15:59 Stl Occult Blood (IFOB) Negative (NEGATIVE) 02/27/19 15:59 Stool for White Cells Positive (NEGATIVE) A 02/27/19 15:59 Stl C. diff Tox B Gene Negative (NEGATIVE) 02/27/19 15:59 Stl C. diff [id number] Negative (NEGATIVE) 02/27/19 15:59 Stool H. 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 Pt is to keep follow up appointment as instructed and take medications as ordered. Discharge Medications Discharge Medications: atorvastatin Allergy (Verified 02/27/19 15:14) codeine Allergy (Verified 02/27/19 15:14) ezetimibe [From Zetia] Allergy (Verified 02/27/19 15:14) gabapentin [From Neurontin] Allergy (Verified 02/27/19 15:14) meperidine [From Demerol] Allergy (Verified 02/27/19 15:14) promethazine [From Phenergan] Allergy (Verified 02/27/19 15:14) CONTINUE taking the following medications Biotin Plus Keratin 1 tab PO DAILY 02/27/19 [History] alendronate [Fosamax] 70 mg PO DAILY 02/27/19 [History] cholecalciferol (vitamin D3) [Vitamin D3] 2,000 unit PO DAILY 02/27/19 [History] niacin 1,000 mg PO DAILY 02/27/19 [History] pravastatin 20 mg PO DAILY 02/27/19 [History] New Prescriptions ciprofloxacin HCl 500 mg PO BID 5 Days #10 tab 03/01/19 [Rx] metronidazole 500 mg PO TID 5 Days #15 tab 03/01/19 [Rx] Follow up and Referral Follow Up: 1 Week (PCP) Discharge Disposition Discharge Disposition: Home
[2019-03-01] MEDS: PRAVACHOL PO SCH (11:09)
[2019-03-01] MEDS: ALENDRONATE 70 MG PO SCH (12:14)
[2019-03-01] MEDS: CALCIUM VITAMIN D3 VITAMIN K PO SCH (12:14)
[2019-03-01] MEDS: K-LYTE EFFERVESCENT PO SCH (12:15)
[2019-03-01] MEDS: NIACIN 1000 MG PO SCH (12:19)
[2019-03-01 13:20] VITALS: BP 128/62
[2019-03-03 06:46] LABS: SODIUM STOOL 66
[2019-03-03 06:47] LABS: CHLORIDE STOOL 39; POTASSIUM STOOL 29
== END 2019-03-01 14:40 | disposition home or self-care (01) ==
LOC: ICU 15:10 → ER 15:10 → ICU 19:29
PROVIDERS: ADMIT Family Medicine; ATTEND Family Medicine
CPT/HCPCS: 36415; 74176; 80048; 80053; 81001; 82150; 82270; 82438; 83630; 83690; 83735; 84132; 84302; 84999; 85025; 87045; 87338; 87427; 87449; 87493; 87899; 96365; 96367; 96374; 96375; 99284; A4216; A4222; C9113; J7030; S0030; G0378; J0696; J0744; J2405; J3475; J8499